=== PATIENT | male | born 1950 | race Caucasian/White ===

== ENCOUNTER 2020-03-14 10:27 | Inpatient (IN) | payer MEDICARE ==
[2020-03-14] MEDS ORDERED: Labetalol HCl 100 MG/20 ML VIAL SLOW IVP SCH (14:00)
[2020-03-14] MEDS ORDERED: Ondansetron PF 4 MG/2 ML Vial IVP PRN (14:53)
[2020-03-14] MEDS ORDERED: Acetaminophen 325 MG TAB PO PRN (14:53)
[2020-03-14] MEDS ORDERED: Ondansetron ODT 4 MG TAB PO PRN (14:53)
[2020-03-14] MEDS ORDERED: HumaLOG 300 UNITS/3 ML VIAL SC PRN (14:54)
[2020-03-14] MEDS ORDERED: Dextrose 5% in Water 1,000 ML IV PRN (14:54)
[2020-03-14] MEDS ORDERED: Dextrose 50% Abboject 50 ML SYRINGE SLOW IVP PRN (14:54)
[2020-03-14] MEDS ORDERED: niCARdipine 25 MG in Sodium Chloride 0.9% 250 ML 240 ML IVPB SCH (15:00)
[2020-03-14 16:07] LABS: Troponin I 0.581 ng/mL (< 0.028)
[2020-03-14 18:57] LABS: Critical Call Chem Troponin I RESULT DECREASING; Troponin I 0.477 ng/mL (< 0.028)
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
[2020-03-14] MEDS: Famotidine/PF 20 mg/2ml Vial SLOW IVP SCH (19:54)
[2020-03-14] MEDS: niCARdipine 25 MG in Sodium Chloride 0.9% 250 ML 240 ML IVPB SCH (20:57)
[2020-03-14] MEDS: Temazepam 15 MG CAP PO PRN (21:12)
[2020-03-14] MEDS: Nitroglycerin 2% Ointment 1 INCH/1 GM Packet TOP SCH (21:12)
[2020-03-15] MEDS: niCARdipine 25 MG in Sodium Chloride 0.9% 250 ML 240 ML IVPB SCH ×2 (01:06→05:21)
[2020-03-15 03:30] LABS: #Basophils 0.1 thou/uL (0.0-0.2); #Eosinphils 0.2 thou/uL (0.0-0.7); #Monocytes 1.2 thou/uL (0.11-0.59); %Basophils 0.5 % (0.0-1.0); %Eosinophils 1.5 % (0.0-10.0); %Lymphocytes 7.1 % (21.0-51.0); %Neutrophils 81.9 % (42.0-75.0); Hemoglobin 14.2 g/dL (14.0-18.0); Mean Corpuscular HGB CONC 32.3 g/dL (32.0-36.0); Mean Corpuscular Volume 89.9 fL (78.0-98.0); Mean Platelet Volume 7.6 fL (7.4-10.4); Platelet Count 198 thou/uL (130-400); Red Blood Cell (RBC) Count 4.91 mill/uL (4.70-6.10); White Blood Cell (WBC) Count 13.4 thou/uL (4.8-10.8)
[2020-03-15 03:49] LABS: Anion Gap 15 mmol/L (10-20); BUN (Urea Nitrogen) 33 mg/dL (8.4-25.7); Calc. Creatinine Clearance 80 mL/min (70-130); Calcium 9.4 mg/dL (7.8-10.44); Carbon Dioxide 30 mmol/L (23-31); Cardiac Risk 3.3 (Less than 4.5); Chloride 97 mmol/L (98-107); Cholesterol 97 mg/dl (< 200 Desired); Estimated GFR-MDRD 47; Glucose 121 mg/dL (83-110); HDL Cholesterol 29 mg/dL (>60 Neg Risk); LDL Cholesterol, Calculated 46 mg/dL; Potassium 4.1 mmol/L (3.5-5.1); Sodium 138 mmol/L (136-145); Triglycerides 110 mg/dL (Less than 150)
[2020-03-15] MEDS: Nitroglycerin 2% Ointment 1 INCH/1 GM Packet TOP SCH ×3 (05:16→21:05)
[2020-03-15] MEDS: Levothyroxine Sodium 125 MCG TAB PO SCH (05:16)
--- NOTE | 2020-03-15 08:14 | PDOC.CPN ---
- Subjective Date: 03/15/20 Time: 08:12 Interval history: Doing much better this am More lucid and BP better - Objective Allergies/Adverse Reactions: Allergies Allergy/AdvReac Type Severity Reaction Status Date / Time quetiapine fumarate Allergy Verified 03/14/20 13:29 [From Seroquel] trazodone Allergy Verified 03/14/20 13:29 Visit Medications: Current Medications Acetaminophen (Acetaminophen 325 Mg Tab) 650 mg PO Q4H PRN PRN Reason: Headache/Fever/Mild Pain (1-3) Atorvastatin Calcium (Atorvastatin Calcium 10 Mg Tab) 10 mg PO HS [facility] Carvedilol (Carvedilol 25 Mg Tab) 25 mg PO BID JOSAFAT Dextrose/Water (Dextrose 50% Abboject 50 Ml Syringe) 25 gm SLOW IVP PRN PRN PRN Reason: Hypoglycemia Famotidine (Famotidine/Pf 20 Mg/2ml Vial) 20 mg SLOW IVP Q12HR [facility] Last Admin: 03/14/20 19:54 Dose: 20 mg Documented by: Glucagon (Glucagon 1 Mg/Ml Vial) 1 mg IM PRN PRN PRN Reason: Hypoglycemia Dextrose/Water (D5w) 1,000 mls @ 0 mls/hr IV .Q0M PRN PRN Reason: Hypoglycemia Nicardipine HCl 25 mg/ Sodium (Chloride) 250 mls @ 0 mls/hr IVPB INF [facility]; Protocol Last Admin: 03/15/20 05:21 Dose: 250 mls Documented by: Indomethacin (Indomethacin 75 Mg Sr Capsule) 75 mg PO DAILY [facility] Insulin Human Lispro (Humalog 300 Units/3 Ml Vial) 0 units SC .MODERATE SLIDING SC PRN PRN Reason: Moderate Correctional Scale Insulin Human Lispro (Humalog 300 Units/3 Ml Vial) 0 units SC .BEDTIME SLIDING SC PRN PRN Reason: Bedtime Correctional Scale Levothyroxine Sodium (Levothyroxine Sodium 125 Mcg Tab) 125 mcg PO 0600 [facility] Last Admin: 03/15/20 05:16 Dose: 125 mcg Documented by: Nitroglycerin (Nitroglycerin 2% Ointment 1 Inch/1 Gm Packet) 0.5 inch TOP Q8HR [facility] Last Admin: 03/15/20 05:16 Dose: 0.5 inch Documented by: Ondansetron HCl (Ondansetron Odt 4 Mg Tab) 4 mg PO Q6H PRN PRN Reason: Nausea/Vomiting Ondansetron HCl (Ondansetron Pf 4 Mg/2 Ml Vial) 4 mg IVP Q6H PRN PRN Reason: Nausea/Vomiting Paroxetine HCl (Paroxetine 20 Mg Tab) 20 mg PO DAILY JOSAFAT Sodium Chloride (Flush - Normal Saline 10 Ml Syringe) 10 ml IVF Q12HR JOSAFAT Sodium Chloride (Flush - Normal Saline 10 Ml Syringe) 10 ml IVF PRN PRN PRN Reason: Saline Flush Temazepam (Temazepam 15 Mg Cap) 15 mg PO HS PRN PRN Reason: Insomnia Last Admin: 03/14/20 21:12 Dose: 15 mg Documented by: Vital Signs & Weight: Vital Signs Temp Pulse Ox 03/15/20 04:00 98.0 F 03/15/20 00:30 97 03/15/20 00:00 97.8 F Weight 272 lb 11.389 oz - Physical Exam General: no apparent distress HEENT: normocephaly Neck: supple neck Cardiac: no murmur, regular rate, regular rhythm Lungs: normal exam Neuro: grossly intact - Labs Result Diagrams: 03/15/20 03:02 03/15/20 03:02 Troponin/CKMB Troponin I 0.477 ng/mL (< 0.028) H* 03/14/20 18:13 - Telemetry Sinus rhythms and dysrhythmias: sinus rhythm - Assessment/Plan Assessment/Plan: 03/15 A/P Hypertensive urgency Elevated troponin CAD s/p CABG Renal insufficiency Add PO CCB On IV cardene Avoid metformin givne RI On ASA, coreg Add norvasc 5mg BID Add ARB if needed to supplement the CCB
--- NOTE | 2020-03-15 08:16 | CON ---
DATE OF CONSULTATION: 03/15/2020 REASON FOR CONSULTATION: The patient is in the ICU. HISTORY OF PRESENT ILLNESS: The patient is a 70-year-old male who transferred to this facility from [place] and told he was brought to the ICU last night because he was quite hypertensive, turns out his IV were infiltrated. Once IV was reestablished, it was fairly easy to get his blood pressure down. The patient has now been weaned off nicardipine drip. He is alert and oriented at this time and has no specific complaints other than his arms are tied down. PAST MEDICAL HISTORY: 1. Diabetes mellitus. 2. Hypertension. 3. Hypothyroidism. 4. Coronary artery disease. 5. Myocardial infarction. 6. Obesity. PAST SURGICAL HISTORY: Coronary artery bypass grafting surgery in 2013. He has a pacemaker, left arm surgery, multiple eye surgeries, and right knee arthroplasty. ALLERGIES: NONE. SOCIAL HISTORY: He is . He ambulates with a walker. He formally smoked two packs a day for about 40 years. He chews tobacco. FAMILY MEDICAL HISTORY: Remarkable for coronary artery disease. MEDICATIONS: Prior to admission: 1. Ambien CR 12.5 mg nightly. 2. Zaroxolyn 5 mg daily. 3. Tramadol 50 mg as needed. 4. Restoril 15 mg nightly. 5. Levothyroxine 125 mcg daily. 6. Simvastatin 20 mg daily. 7. Paxil 20 mg daily. 8. Potassium chloride 20 mEq in the morning and 10 mEq in the evening. 9. Indomethacin 75 mg daily. 10. Metformin 500 mg daily. 11. Aspirin 81 mg daily. 12. Torsemide 50 mg twice daily. 13. Carvedilol 25 mg twice daily. 14. Albuterol inhaler as needed. REVIEW OF SYSTEMS: Twelve-point review of systems is otherwise negative. PHYSICAL EXAMINATION: VITAL SIGNS: Temperature 98.0, pulse 61, blood pressure 131/75, and O2 saturation 100%. GENERAL: He is awake, in no distress. HEENT: Unremarkable. NECK: No adenopathy or JVD. CHEST: Has a pacemaker, palpable left upper quadrant chest. LUNGS: Clear to auscultation. CARDIAC: S1 and S2. Paced without murmur. ABDOMEN: Soft, obese, nontender, and nondistended. EXTREMITIES: No clubbing or cyanosis. He has multiple abrasions over his left pretibial region. LABORATORY DATA: White blood cell count 13.4, hematocrit 44.1, and platelet count 198. Sodium 138, potassium 4.1, chloride 97, CO2 of 30, BUN 33, creatinine 1.5, and glucose 121. ASSESSMENT: 1. Encephalopathy-seems to be improved after control of the patient's blood pressure. 2. Multiple other medical problems as listed above. RECOMMENDATIONS: The patient's blood pressure is now stable and I would advise moving him out to the floor for further workup of the remainder of his medical problems. He does not require intensive care at this time. Available as needed. Job ID: [id number]
[2020-03-15] MEDS: Carvedilol 25 MG TAB PO SCH ×2 (08:22→21:10)
[2020-03-15] MEDS: PARoxetine 20 MG TAB PO SCH (08:22)
[2020-03-15] MEDS: Famotidine/PF 20 mg/2ml Vial SLOW IVP SCH ×2 (08:22→21:05)
--- NOTE | 2020-03-15 08:28 | CON ---
DATE OF CONSULTATION: 03/14/2020 REASON FOR CONSULTATION: Elevated troponin. PRIMARY CABLE RESPOOLER: Dr. Zhen Hollins. HISTORY OF PRESENT ILLNESS: Mr. Gonsalves is a 70-year-old gentleman from [place], [place]. He recently was seen and evaluated in [place], [place] for dizziness and lightheadedness. Blood pressure was markedly elevated. His troponin was also in the indeterminate range. The history from Mr. Gonsalves is difficult. He does have mild confusion. He does know where he is. He denies chest pain, pressure, or other associated symptoms. Blood pressure is markedly elevated in the 220/110 range. He has been placed on Cardene for blood pressure management. PAST MEDICAL HISTORY: CAD, status post bypass surgery; hypertension; obesity; hypothyroidism; previous [place]; diabetes mellitus; left arm surgery; eye surgery; and knee surgery. ALLERGIES: NONE. SOCIAL HISTORY: He is currently . Previous tobacco abuse. FAMILY HISTORY: Positive for CAD. HOME MEDICATIONS: Include: 1. Potassium. 2. Paxil. 3. Simvastatin. 4. Levothyroxine. 5. Temazepam. 6. Tramadol. 7. Zaroxolyn. 8. Ambien. 9. Metformin. 10. Aspirin. 11. Torsemide. 12. Carvedilol. 13. Albuterol. REVIEW OF SYSTEMS: Difficult to obtain due to confusion. PHYSICAL EXAMINATION: GENERAL: Patient is a pleasant 70-year-old gentleman who is in no acute distress. The patient appears their stated age. He is confused. VITAL SIGNS: Blood pressure 135/75, pulse 61, temperature afebrile. NEUROLOGIC: The patient is alert and oriented x3 with no focal neurologic deficits. HEENT: Sclerae without icterus. Mouth has moist mucous membranes with normal pallor. NECK: No JVD. Carotid upstroke brisk. No bruits bilaterally. LUNGS: Clear to auscultation with unlabored respirations. BACK: No scoliosis or kyphosis. CARDIAC: Regular rate and rhythm with normal S1 and S2. No S3 or S4 noted. No significant rubs, murmurs, thrills, or gallops noted throughout the precordium. PMI is not displaced. There is no parasternal heave. ABDOMEN: Soft, nontender, nondistended. No peritoneal signs present. No hepatosplenomegaly. No abnormal striae. EXTREMITIES: 2+ femoral and 2+ dorsalis pedis pulses. No cyanosis, clubbing, or edema. SKIN: No gross abnormalities. PERTINENT LABORATORY DATA: Hemoglobin 14.2, platelet count 198. Creatinine 1.47 with a GFR of 47. Peak troponin 0.581. EKG shows normal sinus rhythm with ST-T wave changes suggesting LV strain. No acute changes. IMPRESSION: 1. Hypertensive urgency. 2. Coronary artery disease. 3. Status post bypass surgery. 4. Elevated troponin. RECOMMENDATIONS: 1. Agree with institution of Cardene. May also consider IV nitroglycerin for better blood pressure management. Once blood pressure is managed via IV route, would then supplement with p.o. 2. Elevated troponin secondary to demand ischemia from hypertensive urgency. The patient has no current symptoms suggesting unstable angina. 3. Avoid metformin due to risk of lactic acidosis given renal insufficiency. Job ID: [id number]
[2020-03-15] MEDS ORDERED: FLU VACC QS2020-21(65YR UP)/PF 240 MCG/0.7 ML SYRINGE IM ONE (09:00)
[2020-03-15] MEDS ORDERED: ZOLPIDEM TARTRATE 12.5 MG PO PRN (09:23)
[2020-03-15] MEDS ORDERED: hydrALAZINE 25 MG TAB PO PRN (09:29)
--- NOTE | 2020-03-15 09:32 | PDOC.HOSPP ---
- Subjective Encounter Date: 03/15/20 Encounter Time: 09:30 Subjective: Mr. Gonsalves was seen today in follow-up of hypertensive crisis. He is more alert today, and a bit less confused. He denies headache or chest pain. - Objective Vital Signs & Weight: Vital Signs (12 hours) Temp Pulse Ox 03/15/20 07:00 97.6 F 03/15/20 04:00 98.0 F 03/15/20 00:30 97 03/15/20 00:00 97.8 F Weight Weight 272 lb 11.389 oz Most Recent Monitor Data Heart Rate from ECG 62 NIBP 162/88 NIBP BP-Mean 112 Respiration from ECG 12 SpO2 100 I&O: 03/14/20 03/15/20 03/16/20 06:59 06:59 06:59 Intake Total 580 160 Output Total 1750 296 Balance -1170 -136 Result Diagrams: 03/15/20 03:02 03/15/20 03:02 Additional Labs: Accuchecks 03/15/20 03/14/20 03/14/20 08:40 21:27 18:45 POC Glucose 116 H 115 H 123 H Hospitalist ROS - Medication Medications: Active Medications Generic Name Dose Route Start Last Admin Trade Name Freq PRN Reason Stop Dose Admin Carvedilol 25 mg 03/15/20 09:00 03/15/20 08:22 Carvedilol 25 Mg Tab PO 25 mg BID JOSAFAT Administration Famotidine 20 mg 03/14/20 21:00 03/15/20 08:22 Famotidine/Pf 20 Mg/2ml Vial SLOW IVP 20 mg Q12HR JOSAFAT Administration Nicardipine HCl 25 mg/ Sodium 250 mls @ 0 mls/hr 03/14/20 16:57 03/15/20 05:21 Chloride IVPB 250 mls INF JOSAFAT Administration Protocol Titrate Levothyroxine Sodium 125 mcg 03/15/20 06:00 03/15/20 05:16 Levothyroxine Sodium 125 Mcg Tab PO 125 mcg 0600 JOSAFAT Administration Nitroglycerin 0.5 inch 03/14/20 22:00 03/15/20 05:16 Nitroglycerin 2% Ointment 1 Inch/1 Gm Packet TOP 0.5 inch Q8HR JOSAFAT Administration Paroxetine HCl 20 mg 03/15/20 09:00 03/15/20 08:22 Paroxetine 20 Mg Tab PO 20 mg DAILY JOSAFAT Administration Sodium Chloride 10 ml 03/15/20 09:00 03/15/20 09:09 Flush - Normal Saline 10 Ml Syringe IVF 10 ml Q12HR JOSAFAT Administration Temazepam 15 mg 03/14/20 21:02 03/14/20 21:12 Temazepam 15 Mg Cap PO 15 mg HS PRN Administration Insomnia - Exam Eye: PERRL, anicteric sclera Heart: RRR, no murmur, no gallops, no rubs, normal peripheral pulses Respiratory: CTAB, no wheezes, no rales, no ronchi, normal chest expansion Gastrointestinal: soft, non-tender, non-distended, normal bowel sounds, no palpable masses, no hepatomegaly Extremities: no cyanosis Hosp A/P (1) Hypertensive crisis Code(s): I16.9 - HYPERTENSIVE CRISIS, UNSPECIFIED Status: Acute (2) Hypertensive encephalopathy Code(s): I67.4 - HYPERTENSIVE ENCEPHALOPATHY Status: Acute (3) CAD (coronary artery disease) Code(s): I25.10 - ATHSCL HEART DISEASE OF SAULT [place] CORONARY ARTERY W/O ANG PCTRS Status: Chronic (4) Diabetes mellitus type 2 in obese Code(s): E11.69 - TYPE 2 DIABETES MELLITUS WITH OTHER SPECIFIED COMPLICATION; E66.9 - OBESITY, UNSPECIFIED Status: Acute (5) Morbid obesity with BMI of 40.0-44.9, adult Code(s): E66.01 - MORBID (SEVERE) OBESITY DUE TO EXCESS CALORIES; Z68.41 - BODY MASS INDEX (BMI) 40.0-44.9, ADULT Status: Chronic (6) Fall Code(s): W19.XXXA - UNSPECIFIED FALL, INITIAL ENCOUNTER Status: Acute - Plan * Hypertensive Crisis- improved - he is now off the Cardene drip. Will add Amlodipine * DM- blood glucose is stable- will re-start Metformin and continue SSI * Chronic heart failure- will check an Echo * Elevated Troponins- Likely due to NSTEMI type 2, demand from elevated blood pressure * Lower extremity weakness- this is not noted on exam while in the bed- his strength is ok- but says he has not been able to walk since tuesday. Tried to get MRI, but he has a pace-maker defibrillator. Will have to wait until Tuesday, when a risk control field representative from [employer] can be present to ensure that the pace-maker defibrillator is compatible.
[2020-03-15] MEDS ORDERED: Amlodipine 5 MG TAB PO SCH ×2 (09:37→09:45)
[2020-03-15] MEDS: Indomethacin 75 mg SR Capsule PO SCH (10:41)
[2020-03-15 12:10] LABS: SARS-CoV-2 MS2 Positive; SARS-CoV-2 N Gene Negative; SARS-CoV-2 S Gene Negative; SARS-CoV-2 by NAA Not Detected (NotDetected); SARS-CoV-2 orf1ab Negative
[2020-03-15] MEDS: HumaLOG 300 UNITS/3 ML VIAL SC PRN (17:54)
[2020-03-15] MEDS ORDERED: POTASSIUM CHLORIDE 10 MEQ PO SCH (21:00)
[2020-03-15] MEDS: Temazepam 15 MG CAP PO PRN (21:05)
[2020-03-15] MEDS: Potassium Chloride 10 MEQ TAB PO SCH (21:10)
[2020-03-15] MEDS: Atorvastatin Calcium 10 MG TAB PO SCH (21:10)
[2020-03-15] MEDS: Zolpidem Tartrate 5 MG TAB PO PRN (21:10)
[2020-03-15] MEDS: Torsemide 100 MG TAB PO SCH (21:15)
[2020-03-16 04:28] LABS: #Basophils 0.1 thou/uL (0.0-0.2); #Eosinphils 0.3 thou/uL (0.0-0.7); #Lymphocytes 0.9 thou/uL (1.20-3.40); #Monocytes 0.6 thou/uL (0.11-0.59); #Neutrophils 8.3 thou/uL (1.40-6.50); %Basophils 0.5 % (0.0-1.0); %Eosinophils 2.6 % (0.0-10.0); %Lymphocytes 8.5 % (21.0-51.0); %Monocytes 6.3 % (0.0-10.0); %Neutrophils 82.1 % (42.0-75.0); Hemoglobin 14.1 g/dL (14.0-18.0); Mean Corpuscular HGB CONC 31.9 g/dL (32.0-36.0); Mean Corpuscular Hemoglobin 28.7 pg (27.0-31.0); Mean Platelet Volume 7.6 fL (7.4-10.4); Platelet Count 214 thou/uL (130-400); RBC Distribution Width 14.9 % (11.5-14.5); Red Blood Cell (RBC) Count 4.93 mill/uL (4.70-6.10); White Blood Cell (WBC) Count 10.1 thou/uL (4.8-10.8)
[2020-03-16 04:50] LABS: Anion Gap 13 mmol/L (10-20); BUN (Urea Nitrogen) 35 mg/dL (8.4-25.7); Calc. Creatinine Clearance 84 mL/min (70-130); Carbon Dioxide 31 mmol/L (23-31); Chloride 96 mmol/L (98-107); Estimated GFR-MDRD 50; Glucose 106 mg/dL (83-110); Sodium 136 mmol/L (136-145)
[2020-03-16] MEDS: Nitroglycerin 2% Ointment 1 INCH/1 GM Packet TOP SCH (06:20)
[2020-03-16] MEDS: Levothyroxine Sodium 125 MCG TAB PO SCH (06:20)
[2020-03-16] MEDS ORDERED: Amlodipine 5 MG TAB PO SCH ×3 (09:00→21:00)
[2020-03-16] MEDS: Metolazone 5 MG TAB PO SCH (09:06)
[2020-03-16] MEDS: Indomethacin 75 mg SR Capsule PO SCH (09:06)
[2020-03-16] MEDS: Famotidine/PF 20 mg/2ml Vial SLOW IVP SCH ×2 (09:06→20:48)
[2020-03-16] MEDS: PARoxetine 20 MG TAB PO SCH (09:06)
[2020-03-16] MEDS: Carvedilol 25 MG TAB PO SCH ×2 (09:06→20:48)
[2020-03-16] MEDS: Aspirin 81 mg Enteric Coated Tablet PO SCH (09:06)
[2020-03-16] MEDS: Potassium Chloride 20 MEQ TAB PO SCH (09:07)
[2020-03-16] MEDS: Torsemide 100 MG TAB PO SCH ×2 (09:07→20:49)
[2020-03-16] MEDS: HumaLOG 300 UNITS/3 ML VIAL SC PRN (11:54)
--- NOTE | 2020-03-16 12:59 | PDOC.CPN ---
- Subjective Date: 03/16/20 Time: 12:15 Interval history: No complaints this morning. Hungry. - Review of Systems General: denies: fever/chills, weight/appetite/sleep changes, night sweats, fatigue Respiratory: denies: cough, congestion, shortness of breath, exercise intolerance Cardiovascular: denies: chest pain, palpitation, edema, paroxysmal nocturnal dyspnea, orthopnea Gastrointestinal: denies: nausea, vomiting, diarrhea, constipation, abd pain, GI bleeding Neurological: reports: weakness (weakness to legs) - Objective Allergies/Adverse Reactions: Allergies Allergy/AdvReac Type Severity Reaction Status Date / Time quetiapine fumarate Allergy Verified 03/14/20 13:29 [From Seroquel] trazodone Allergy Verified 03/14/20 13:29 Visit Medications: Current Medications Acetaminophen (Acetaminophen 325 Mg Tab) 650 mg PO Q4H PRN PRN Reason: Headache/Fever/Mild Pain (1-3) Amlodipine Besylate (Amlodipine 5 Mg Tab) 5 mg PO BID [facility] Aspirin (Aspirin 81 Mg Enteric Coated Tablet) 81 mg PO DAILY [facility] Last Admin: 03/16/20 09:06 Dose: 81 mg Documented by: Atorvastatin Calcium (Atorvastatin Calcium 10 Mg Tab) 10 mg PO HS [facility] Last Admin: 03/15/20 21:10 Dose: 10 mg Documented by: Carvedilol (Carvedilol 25 Mg Tab) 25 mg PO BID [facility] Last Admin: 03/16/20 09:06 Dose: 25 mg Documented by: Dextrose/Water (Dextrose 50% Abboject 50 Ml Syringe) 25 gm SLOW IVP PRN PRN PRN Reason: Hypoglycemia Famotidine (Famotidine/Pf 20 Mg/2ml Vial) 20 mg SLOW IVP Q12HR [facility] Last Admin: 03/16/20 09:06 Dose: 20 mg Documented by: Glucagon (Glucagon 1 Mg/Ml Vial) 1 mg IM PRN PRN PRN Reason: Hypoglycemia Hydralazine HCl (Hydralazine 25 Mg Tab) 25 mg PO TID PRN PRN Reason: SBP Greater Than 170 Dextrose/Water (D5w) 1,000 mls @ 0 mls/hr IV .Q0M PRN PRN Reason: Hypoglycemia Nicardipine HCl 25 mg/ Sodium (Chloride) 250 mls @ 0 mls/hr IVPB INF [facility]; Protocol Last Admin: 03/15/20 05:21 Dose: 250 mls Documented by: Indomethacin (Indomethacin 75 Mg Sr Capsule) 75 mg PO DAILY [facility] Last Admin: 03/16/20 09:06 Dose: 75 mg Documented by: Insulin Human Lispro (Humalog 300 Units/3 Ml Vial) 0 units SC .MODERATE SLIDING SC PRN PRN Reason: Moderate Correctional Scale Last Admin: 03/16/20 11:54 Dose: 2 unit Documented by: Insulin Human Lispro (Humalog 300 Units/3 Ml Vial) 0 units SC .BEDTIME SLIDING SC PRN PRN Reason: Bedtime Correctional Scale Isosorbide Mononitrate (Isosorbide Mononitrate Er 30 Mg Tab) 30 mg PO DAILY [facility] Levothyroxine Sodium (Levothyroxine Sodium 125 Mcg Tab) 125 mcg PO 0600 [facility] Last Admin: 03/16/20 06:20 Dose: Not Given Documented by: Metolazone (Metolazone 5 Mg Tab) 5 mg PO DAILY [facility] Last Admin: 03/16/20 09:06 Dose: 5 mg Documented by: Ondansetron HCl (Ondansetron Odt 4 Mg Tab) 4 mg PO Q6H PRN PRN Reason: Nausea/Vomiting Ondansetron HCl (Ondansetron Pf 4 Mg/2 Ml Vial) 4 mg IVP Q6H PRN PRN Reason: Nausea/Vomiting Paroxetine HCl (Paroxetine 20 Mg Tab) 20 mg PO DAILY [facility] Last Admin: 03/16/20 09:06 Dose: 20 mg Documented by: Potassium Chloride (Potassium Chloride 20 Meq Tab) 20 meq PO DAILY [facility] Last Admin: 03/16/20 09:07 Dose: 20 meq Documented by: Potassium Chloride (Potassium Chloride 10 Meq Tab) 10 meq PO HS [facility] Last Admin: 03/15/20 21:10 Dose: 10 meq Documented by: Sodium Chloride (Flush - Normal Saline 10 Ml Syringe) 10 ml IVF Q12HR [facility] Last Admin: 03/16/20 09:07 Dose: 10 ml Documented by: Sodium Chloride (Flush - Normal Saline 10 Ml Syringe) 10 ml IVF PRN PRN PRN Reason: Saline Flush Temazepam (Temazepam 15 Mg Cap) 15 mg PO HS PRN PRN Reason: Insomnia Last Admin: 03/15/20 21:05 Dose: 15 mg Documented by: Torsemide (Torsemide 100 Mg Tab) 50 mg PO BID [facility] Last Admin: 03/16/20 09:07 Dose: 50 mg Documented by: Zolpidem Tartrate (Zolpidem Tartrate 5 Mg Tab) 10 mg PO HSPRN PRN PRN Reason: SLEEP Last Admin: 03/15/20 21:10 Dose: 10 mg Documented by: Vital Signs & Weight: Vital Signs Temp Pulse Resp BP Pulse Ox 03/16/20 11:31 97.7 F 60 18 172/84 H 95 03/16/20 07:43 98.2 F 61 18 169/83 H 95 03/16/20 04:00 96.2 F L 62 20 143/88 H 96 Weight 277 lb 12.519 oz - Physical Exam General: appears well, no apparent distress HEENT: mucus membranes moist Neck: supple neck Cardiac: regular rate and rhythm Lungs: clear to auscultation Abdomen: soft, non-tender Extremities: no edema, other: (decreased to absent pedal pulses. Healing ulcerations bilaterally.) Skin: ulceration Musculoskeletal: no pain - Labs Result Diagrams: 03/16/20 03:54 03/16/20 03:54 Troponin/CKMB Troponin I 0.477 ng/mL (< 0.028) H* 03/14/20 18:13 - Assessment/Plan Assessment/Plan: 1. HTN Urgency 2. NSTEMI 3. PAD 4. DM 5. Leg weakness 6. Chronic systolic CHF Continue adjusting BP meds. Patient with no stress test or angio since 2013. Will discuss keeping NPO with RG. Needs peripheral angio at some point in the future. Patient cannot have MRI with current ICD. May need neuro evaluation. Good output regarding CHF. Dr. Hollins back tomorrow.
[2020-03-16] MEDS ORDERED: PROVENTIL INHALER 6.7 G (200 INHALATIONS) INH PRN (18:16)
--- NOTE | 2020-03-16 18:18 | PDOC.HOSPP ---
- Subjective Encounter Date: 03/16/20 Encounter Time: 10:40 Subjective: Pt has no acute issues at this time. - Objective Vital Signs & Weight: Vital Signs (12 hours) Temp Pulse Resp BP Pulse Ox 03/16/20 15:20 98.2 F 60 16 173/74 H 97 03/16/20 11:31 97.7 F 60 18 172/84 H 95 03/16/20 07:43 98.2 F 61 18 169/83 H 95 Weight Weight 277 lb 12.519 oz Most Recent Monitor Data Heart Rate from ECG 65 NIBP 162/95 NIBP BP-Mean 117 Respiration from ECG 19 SpO2 97 I&O: 03/15/20 03/16/20 03/17/20 06:59 06:59 06:59 Intake Total 580 310 Output Total 1750 1238 Balance -1170 928 Result Diagrams: 03/16/20 03:54 03/16/20 03:54 Additional Labs: Accuchecks 03/16/20 03/16/20 03/15/20 17:22 11:19 20:17 POC Glucose 139 H 186 H 168 H Hospitalist ROS - Review of Systems Constitutional: denies: fever, chills, sweats, weakness, malaise, other Eyes: denies: pain, vision change, conjunctivae inflammation, eyelid inflammation, redness, other ENT: denies: ear pain, ear discharge, nose pain, nose discharge, nose congestion, mouth pain, mouth swelling, throat pain, throat swelling, other Respiratory: denies: cough, dry, shortness of breath, hemoptysis, SOB with excertion, pleuritic pain, sputum, wheezing, other Cardiovascular: denies: chest pain, palpitations, orthopnea, paroxysmal noc. dyspnea, edema, light headedness, other Gastrointestinal: denies: nausea, vomiting, abdominal pain, diarrhea, constipation, melena, hematochezia, other Genitourinary: denies: dysuria, frequency, incontinence, hematuria, retention, other Musculoskeletal: denies: neck pain, shoulder pain, arm pain, back pain, hand pain, leg pain, foot pain, other Skin: denies: rash, lesions, maria esther, bruising, other Neurological: denies: weakness, numbness, incoordination, change in speech, confusion, seizures, other - Medication Medications: Active Medications Generic Name Dose Route Start Last Admin Trade Name Kemq PRN Reason Stop Dose Admin Aspirin 81 mg 03/16/20 09:00 03/16/20 09:06 Aspirin 81 Mg Enteric Coated Tablet PO 81 mg DAILY JOSAFAT Administration Atorvastatin Calcium 10 mg 03/15/20 21:00 03/15/20 21:10 Atorvastatin Calcium 10 Mg Tab PO 10 mg HS JOSAFAT Administration Carvedilol 25 mg 03/15/20 09:00 03/16/20 09:06 Carvedilol 25 Mg Tab PO 25 mg BID JOSAFAT Administration Famotidine 20 mg 03/14/20 21:00 03/16/20 09:06 Famotidine/Pf 20 Mg/2ml Vial SLOW IVP 20 mg Q12HR JOSAFAT Administration Hydralazine HCl 25 mg 03/15/20 09:29 03/16/20 15:26 Hydralazine 25 Mg Tab PO 25 mg TID PRN Administration SBP Greater Than 170 Nicardipine HCl 25 mg/ Sodium 250 mls @ 0 mls/hr 03/14/20 16:57 03/15/20 05:21 Chloride IVPB 250 mls INF JOSAFAT Administration Protocol Titrate Indomethacin 75 mg 03/15/20 09:00 03/16/20 09:06 Indomethacin 75 Mg Sr Capsule PO 75 mg DAILY JOSAFAT Administration Insulin Human Lispro 0 units 03/14/20 14:54 03/16/20 11:54 Humalog 300 Units/3 Ml Vial SC 2 unit .MODERATE SLIDING SC PRN Administration Moderate Correctional Scale Levothyroxine Sodium 125 mcg 03/15/20 06:00 03/16/20 06:20 Levothyroxine Sodium 125 Mcg Tab PO Not Given 06 [facility] Metolazone 5 mg 03/16/20 09:00 03/16/20 09:06 Metolazone 5 Mg Tab PO 5 mg DAILY JOSAFAT Administration Paroxetine HCl 20 mg 03/15/20 09:00 03/16/20 09:06 Paroxetine 20 Mg Tab PO 20 mg DAILY JOSAFAT Administration Potassium Chloride 20 meq 03/16/20 09:00 03/16/20 09:07 Potassium Chloride 20 Meq Tab PO 20 meq DAILY JOSAFAT Administration Potassium Chloride 10 meq 03/15/20 21:00 03/15/20 21:10 Potassium Chloride 10 Meq Tab PO 10 meq HS JOSAFAT Administration Sodium Chloride 10 ml 03/15/20 09:00 03/16/20 09:07 Flush - Normal Saline 10 Ml Syringe IVF 10 ml Q12HR JOSAFAT Administration Temazepam 15 mg 03/14/20 21:02 03/15/20 21:05 Temazepam 15 Mg Cap PO 15 mg HS PRN Administration Insomnia Torsemide 50 mg 03/15/20 21:00 03/16/20 09:07 Torsemide 100 Mg Tab PO 50 mg BID JOSAFAT Administration Zolpidem Tartrate 10 mg 03/15/20 21:00 03/15/20 21:10 Zolpidem Tartrate 5 Mg Tab PO 10 mg HSPRN PRN Administration SLEEP - Exam General Appearance: awake alert Eye: PERRL, anicteric sclera ENT: normocephalic atraumatic, no oropharyngeal lesions Neck: supple, symmetric, no JVD Heart: no murmur, no gallops, no rubs Respiratory: CTAB, no rales, no ronchi Gastrointestinal: soft, non-tender, non-distended Extremities: no cyanosis, no clubbing, no edema Neurological: cranial nerve grossly intact, no focal deficits Musculoskeletal: normal tone, normal strength Psychiatric: normal affect, normal behavior, A&O x 3 Hosp A/P (1) ANTONIO (acute kidney injury) Code(s): N17.9 - ACUTE KIDNEY FAILURE, UNSPECIFIED Status: Acute Plan: Improving. Metformin still in hold. Will cont to monitor Cr. (2) Diabetes mellitus type 2 in obese Code(s): E11.69 - TYPE 2 DIABETES MELLITUS WITH OTHER SPECIFIED COMPLICATION; E66.9 - OBESITY, UNSPECIFIED Status: Acute Plan: Controlled. Metformin on hold due to ANTONIO. Monitor BG, cover with SSI. (3) Hypertensive crisis Code(s): I16.9 - HYPERTENSIVE CRISIS, UNSPECIFIED Status: Acute Plan: BP is still high. Will d/c Amlodipine, start Nifedipine 30 mg BID. Monitor BP. Cardiology is on board. Unable to get MRI now due to PM incompatibility. (4) CAD (coronary artery disease) Code(s): I25.10 - ATHSCL HEART DISEASE OF [place] CORONARY ARTERY W/O ANG PCTRS Status: Chronic Plan: Stable. Cont med mgt. (5) S/P CABG (coronary artery bypass graft) Code(s): Z95.1 - PRESENCE OF AORTOCORONARY BYPASS GRAFT Status: Acute Plan: Cont med mgt. (6) Elevated troponin Code(s): R77.8 - OTHER SPECIFIED ABNORMALITIES OF PLASMA PROTEINS Status: Acute Plan: Likely due to Type NE. Cardiology is on board. F/u with cardiac recs. - Plan PPx: SCDs. CODE: Full. Dispo: Cont current mgt.
[2020-03-16] MEDS: Atorvastatin Calcium 10 MG TAB PO SCH (20:47)
[2020-03-16] MEDS: Potassium Chloride 10 MEQ TAB PO SCH (20:48)
[2020-03-16] MEDS: NIFEdipine XL 30 MG TAB PO SCH (20:48)
[2020-03-17] MEDS: Temazepam 15 MG CAP PO PRN (03:17)
[2020-03-17 04:18] LABS: #Eosinphils 0.2 thou/uL (0.0-0.7); #Lymphocytes 0.8 thou/uL (1.20-3.40); #Monocytes 0.6 thou/uL (0.11-0.59); #Neutrophils 8.2 thou/uL (1.40-6.50); %Basophils 0.1 % (0.0-1.0); %Eosinophils 2.1 % (0.0-10.0); %Lymphocytes 8.4 % (21.0-51.0); %Monocytes 6.3 % (0.0-10.0); %Neutrophils 83.1 % (42.0-75.0); Mean Corpuscular HGB CONC 31.6 g/dL (32.0-36.0); Mean Corpuscular Hemoglobin 28.4 pg (27.0-31.0); Mean Corpuscular Volume 89.9 fL (78.0-98.0); Mean Platelet Volume 7.7 fL (7.4-10.4); Platelet Count 216 thou/uL (130-400); RBC Distribution Width 14.7 % (11.5-14.5); Red Blood Cell (RBC) Count 4.94 mill/uL (4.70-6.10); White Blood Cell (WBC) Count 9.8 thou/uL (4.8-10.8)
[2020-03-17 04:42] LABS: Anion Gap 14 mmol/L (10-20); BUN (Urea Nitrogen) 46 mg/dL (8.4-25.7); Calc. Creatinine Clearance 67 mL/min (70-130); Calcium 8.7 mg/dL (7.8-10.44); Carbon Dioxide 32 mmol/L (23-31); Chloride 95 mmol/L (98-107); Estimated GFR-MDRD 37; Glucose 222 mg/dL (83-110); Potassium 3.3 mmol/L (3.5-5.1); Sodium 138 mmol/L (136-145)
[2020-03-17] MEDS: Levothyroxine Sodium 125 MCG TAB PO SCH (06:45)
[2020-03-17] MEDS: HumaLOG 300 UNITS/3 ML VIAL SC PRN ×2 (06:45→17:19)
[2020-03-17] MEDS: Aspirin 81 mg Enteric Coated Tablet PO SCH (09:33)
[2020-03-17] MEDS: Carvedilol 25 MG TAB PO SCH ×2 (09:33→21:42)
[2020-03-17] MEDS: Famotidine/PF 20 mg/2ml Vial SLOW IVP SCH ×2 (09:33→21:43)
[2020-03-17] MEDS: Metolazone 5 MG TAB PO SCH (09:33)
[2020-03-17] MEDS: NIFEdipine XL 30 MG TAB PO SCH ×2 (09:33→21:42)
[2020-03-17] MEDS: PARoxetine 20 MG TAB PO SCH (09:34)
[2020-03-17] MEDS: Potassium Chloride 20 MEQ TAB PO SCH (09:34)
[2020-03-17] MEDS: Torsemide 100 MG TAB PO SCH ×2 (09:36→21:52)
[2020-03-17] MEDS: Indomethacin 75 mg SR Capsule PO SCH (09:38)
--- NOTE | 2020-03-17 12:15 | PDOC.HOSPP ---
- Subjective Encounter Date: 03/17/20 Encounter Time: 12:08 Subjective: post fall. difficulty standing. recent memory deficit - Objective Vital Signs & Weight: Vital Signs (12 hours) Temp Pulse Resp BP Pulse Ox 03/17/20 11:52 97.8 F 61 16 137/71 96 03/17/20 07:34 98.3 F 61 14 160/79 H 97 03/17/20 06:00 98.4 F 62 18 129/62 92 L Weight Weight 279 lb 8.738 oz Most Recent Monitor Data Heart Rate from ECG 65 NIBP 162/95 NIBP BP-Mean 117 Respiration from ECG 19 SpO2 97 I&O: 03/16/20 03/17/20 03/18/20 06:59 06:59 06:59 Intake Total 310 2410 Output Total 1234 3150 Balance -698 -652 Result Diagrams: 03/17/20 03:56 03/17/20 03:56 Additional Labs: Accuchecks 03/17/20 03/17/20 03/16/20 12:01 06:12 20:33 POC Glucose 146 H 169 H 162 H 03/16/20 17:22 POC Glucose 139 H Hospitalist ROS - Medication Medications: Active Medications Generic Name Dose Route Start Last Admin Trade Name Freq PRN Reason Stop Dose Admin Acetaminophen 650 mg 03/14/20 14:53 03/17/20 03:17 Acetaminophen 325 Mg Tab PO 650 mg Q4H PRN Administration Headache/Fever/Mild Pain (1-3) Aspirin 81 mg 03/16/20 09:00 03/17/20 09:33 Aspirin 81 Mg Enteric Coated Tablet PO 81 mg DAILY JOSAFAT Administration Atorvastatin Calcium 10 mg 03/15/20 21:00 03/16/20 20:47 Atorvastatin Calcium 10 Mg Tab PO 10 mg HS JOSAFAT Administration Carvedilol 25 mg 03/15/20 09:00 03/17/20 09:33 Carvedilol 25 Mg Tab PO 25 mg BID JOSAFAT Administration Famotidine 20 mg 03/14/20 21:00 03/17/20 09:33 Famotidine/Pf 20 Mg/2ml Vial SLOW IVP 20 mg Q12HR JOSAFAT Administration Hydralazine HCl 25 mg 03/15/20 09:29 03/16/20 15:26 Hydralazine 25 Mg Tab PO 25 mg TID PRN Administration SBP Greater Than 170 Indomethacin 75 mg 03/15/20 09:00 03/17/20 09:38 Indomethacin 75 Mg Sr Capsule PO 75 mg DAILY JOSAFAT Administration Insulin Human Lispro 0 units 03/14/20 14:54 03/17/20 06:45 Humalog 300 Units/3 Ml Vial SC 2 unit .MODERATE SLIDING SC PRN Administration Moderate Correctional Scale Isosorbide Mononitrate 30 mg 03/17/20 09:00 03/17/20 09:33 Isosorbide Mononitrate Er 30 Mg Tab PO 30 mg DAILY JOSAFAT Administration Levothyroxine Sodium 125 mcg 03/15/20 06:00 03/17/20 06:45 Levothyroxine Sodium 125 Mcg Tab PO 125 mcg 0600 JOSAFAT Administration Metolazone 5 mg 03/16/20 09:00 03/17/20 09:33 Metolazone 5 Mg Tab PO 5 mg DAILY JOSAFAT Administration Nifedipine 30 mg 03/16/20 21:00 03/17/20 09:33 Nifedipine Xl 30 Mg Tab PO 30 mg BID JOSAFAT Administration Paroxetine HCl 20 mg 03/15/20 09:00 03/17/20 09:34 Paroxetine 20 Mg Tab PO 20 mg DAILY JOSAFAT Administration Potassium Chloride 20 meq 03/16/20 09:00 03/17/20 09:34 Potassium Chloride 20 Meq Tab PO 20 meq DAILY JOSAFAT Administration Potassium Chloride 10 meq 03/15/20 21:00 03/16/20 20:48 Potassium Chloride 10 Meq Tab PO 10 meq HS JOSAFAT Administration Sodium Chloride 10 ml 03/15/20 09:00 03/17/20 09:34 Flush - Normal Saline 10 Ml Syringe IVF 10 ml Q12HR JOSAFAT Administration Temazepam 15 mg 03/14/20 21:02 03/17/20 03:17 Temazepam 15 Mg Cap PO 15 mg HS PRN Administration Insomnia Torsemide 50 mg 03/15/20 21:00 03/17/20 09:36 Torsemide 100 Mg Tab PO 50 mg BID JOSAFAT Administration Zolpidem Tartrate 10 mg 03/15/20 21:00 03/15/20 21:10 Zolpidem Tartrate 5 Mg Tab PO 10 mg HSPRN PRN Administration SLEEP - Exam General Appearance: awake alert Heart: RRR, no murmur Respiratory: CTAB Gastrointestinal: soft, non-distended, normal bowel sounds Extremities: 2+ LE edema Neurological: cranial nerve grossly intact, no focal deficits Hosp A/P (1) DM type 2 causing CKD stage 3 Code(s): E11.22 - TYPE 2 DIABETES MELLITUS W DIABETIC CHRONIC KIDNEY DISEASE; N18.30 - Status: Acute Qualifiers: Diabetes mellitus senior care insulin use: without vermin exterminator use (2) NSTEMI (non-ST elevated myocardial infarction) Code(s): I21.4 - NON-ST ELEVATION (NSTEMI) MYOCARDIAL INFARCTION Status: Acute (3) Hypertensive crisis Code(s): I16.9 - HYPERTENSIVE CRISIS, UNSPECIFIED Status: Acute (4) Hypertensive encephalopathy Code(s): I67.4 - HYPERTENSIVE ENCEPHALOPATHY Status: Acute (5) CAD (coronary artery disease) Code(s): I25.10 - ATHSCL HEART DISEASE OF [place] CORONARY ARTERY W/O ANG PCTRS Status: Chronic Qualifiers: Coronary Disease-Associated Artery/Lesion type: [place] artery [place] vs. transplanted heart: [place] heart Associated angina: without angina Qualified Code(s): I25.10 - Atherosclerotic heart disease of [place] coronary artery wit hout angina pectoris (6) Fall Code(s): W19.XXXA - UNSPECIFIED FALL, INITIAL ENCOUNTER Status: Acute (7) Cardiomyopathy Code(s): I42.9 - CARDIOMYOPATHY, UNSPECIFIED Status: Acute - Plan cont asa, statin, b-gilmar, nifedipine will order CT brain, no contrast discuss with cardiology
--- NOTE | 2020-03-17 14:39 | CT ---
CT HEAD WITHOUT CONTRAST: INDICATION: Mental status change. COMPARISON: Comparison is made to the head CT of 03/12/2020. FINDINGS: Significant interval change has occurred since 03/12/2020 exam. There is now abnormal lucency seen in the posterior right temporal lobe and right occipital lobe. There is gyral density within this area of lucency and involving the medial temporal cortex. Findings are most consistent with a subacute r ight ENSEMBLE MEMBER infarct. The gyral density within this area of infarct is increased suggesting possible hem orrhagic transformation with petechial hemorrhage within the gyri. There is no hematoma or acute par enchymal hemorrhage. Ventricles remain normal size. IMPRESSION: New findings in the right posterior temporal and occipital lobes since the recent exam. Findings are most consistent with a subacute right posterior cerebral artery distribution infarct with possible h emorrhagic transformation within the gyri. Findings were discussed with Dr. Dunn. The patient's renal status prohibits IV contrast. He canno t have an MRI due to pacemaker device. Close followup noncontrast CT is recommended to assess contin ued evolution of this apparent infarct. POS: CURT
[2020-03-17] MEDS ORDERED: Nystatin Powder 15 GM BOT TOP PRN (17:03)
--- NOTE | 2020-03-17 17:37 | PDOC.EVN ---
Event Note - Event Note Event Note: CT brain pos sub-acute CVA. move to stroke unit
[2020-03-17] MEDS: Zolpidem Tartrate 5 MG TAB PO PRN (21:42)
[2020-03-17] MEDS: Potassium Chloride 10 MEQ TAB PO SCH (21:42)
[2020-03-17] MEDS: Atorvastatin Calcium 10 MG TAB PO SCH (21:42)
[2020-03-18 05:02] LABS: #Eosinphils 0.2 thou/uL (0.0-0.7); #Lymphocytes 0.9 thou/uL (1.20-3.40); #Neutrophils 9.1 thou/uL (1.40-6.50); %Basophils 0.4 % (0.0-1.0); %Eosinophils 2.1 % (0.0-10.0); %Monocytes 9.1 % (0.0-10.0); %Neutrophils 80.3 % (42.0-75.0); Hemoglobin 14.7 g/dL (14.0-18.0); Mean Corpuscular HGB CONC 31.6 g/dL (32.0-36.0); Mean Corpuscular Hemoglobin 28.4 pg (27.0-31.0); Mean Corpuscular Volume 89.6 fL (78.0-98.0); Mean Platelet Volume 7.5 fL (7.4-10.4); Platelet Count 247 thou/uL (130-400); RBC Distribution Width 14.9 % (11.5-14.5); Red Blood Cell (RBC) Count 5.19 mill/uL (4.70-6.10); White Blood Cell (WBC) Count 11.4 thou/uL (4.8-10.8)
[2020-03-18 05:26] LABS: Anion Gap 16 mmol/L (10-20); BUN (Urea Nitrogen) 50 mg/dL (8.4-25.7); Calc. Creatinine Clearance 65 mL/min (70-130); Calcium 9.3 mg/dL (7.8-10.44); Carbon Dioxide 33 mmol/L (23-31); Chloride 92 mmol/L (98-107); Estimated GFR-MDRD 36; Glucose 134 mg/dL (83-110); Potassium 3.2 mmol/L (3.5-5.1); Sodium 138 mmol/L (136-145)
[2020-03-18] MEDS: Levothyroxine Sodium 125 MCG TAB PO SCH (07:53)
--- NOTE | 2020-03-18 07:58 | PDOC.HOSPP ---
- Subjective Encounter Date: 03/18/20 Encounter Time: 07:54 Subjective: unsteadt, poor understanding of situation - Objective Vital Signs & Weight: Vital Signs (12 hours) Temp Pulse Resp BP BP Pulse Ox 03/18/20 07:34 98.1 F 65 18 142/74 H 94 L 03/18/20 04:13 98.1 F 69 18 151/74 H 92 L 03/18/20 00:15 97.9 F 60 12 131/72 93 L 03/17/20 21:42 60 130/65 03/17/20 20:09 97 03/17/20 19:58 97.8 F 63 15 142/71 H 97 Weight Weight 275 lb 2.19 oz Most Recent Monitor Data Heart Rate from ECG 65 NIBP 162/95 NIBP BP-Mean 117 Respiration from ECG 19 SpO2 97 I&O: 03/17/20 03/18/20 03/19/20 06:59 06:59 06:59 Intake Total 2410 Output Total 3150 Balance -740 Result Diagrams: 03/18/20 04:50 03/18/20 04:50 Additional Labs: Accuchecks 03/18/20 03/17/20 03/17/20 05:50 21:47 16:35 POC Glucose 137 H 128 H 152 H 03/17/20 12:01 POC Glucose 146 H Radiology Reviewed by me: Yes (CT brain, Right post infaarct) Hospitalist ROS - Medication Medications: Active Medications Generic Name Dose Route Start Last Admin Trade Name Freq PRN Reason Stop Dose Admin Acetaminophen 650 mg 03/14/20 14:53 03/17/20 03:17 Acetaminophen 325 Mg Tab PO 650 mg Q4H PRN Administration Headache/Fever/Mild Pain (1-3) Aspirin 81 mg 03/16/20 09:00 03/17/20 09:33 Aspirin 81 Mg Enteric Coated Tablet PO 81 mg DAILY JOSAFAT Administration Atorvastatin Calcium 10 mg 03/15/20 21:00 03/17/20 21:42 Atorvastatin Calcium 10 Mg Tab PO 10 mg HS JOSAFAT Administration Carvedilol 25 mg 03/15/20 09:00 03/17/20 21:42 Carvedilol 25 Mg Tab PO 25 mg BID JOSAFAT Administration Famotidine 20 mg 03/14/20 21:00 03/17/20 21:43 Famotidine/Pf 20 Mg/2ml Vial SLOW IVP 20 mg Q12HR JOSAFAT Administration Hydralazine HCl 25 mg 03/15/20 09:29 03/16/20 15:26 Hydralazine 25 Mg Tab PO 25 mg TID PRN Administration SBP Greater Than 170 Indomethacin 75 mg 03/15/20 09:00 03/17/20 09:38 Indomethacin 75 Mg Sr Capsule PO 75 mg DAILY JOSAFAT Administration Insulin Human Lispro 0 units 03/14/20 14:54 03/17/20 17:19 Humalog 300 Units/3 Ml Vial SC 2 unit .MODERATE SLIDING SC PRN Administration Moderate Correctional Scale Isosorbide Mononitrate 30 mg 03/17/20 09:00 03/17/20 09:33 Isosorbide Mononitrate Er 30 Mg Tab PO 30 mg DAILY JOSAFAT Administration Levothyroxine Sodium 125 mcg 03/15/20 06:00 03/18/20 07:53 Levothyroxine Sodium 125 Mcg Tab PO 125 mcg 0600 JOSAFAT Administration Metolazone 5 mg 03/16/20 09:00 03/17/20 09:33 Metolazone 5 Mg Tab PO 5 mg DAILY JOSAFAT Administration Nifedipine 30 mg 03/16/20 21:00 03/17/20 21:42 Nifedipine Xl 30 Mg Tab PO 30 mg BID JOSAFAT Administration Nystatin 0 gm 03/17/20 17:03 03/17/20 18:22 Nystatin Powder 15 Gm Bot TOP 1 applic TIDPRN PRN Administration SKIN IRRITATION Paroxetine HCl 20 mg 03/15/20 09:00 03/17/20 09:34 Paroxetine 20 Mg Tab PO 20 mg DAILY JOSAFAT Administration Potassium Chloride 20 meq 03/16/20 09:00 03/17/20 09:34 Potassium Chloride 20 Meq Tab PO 20 meq DAILY JOSAFAT Administration Potassium Chloride 10 meq 03/15/20 21:00 03/17/20 21:42 Potassium Chloride 10 Meq Tab PO 10 meq HS JOSAFAT Administration Sodium Chloride 10 ml 03/15/20 09:00 03/17/20 21:43 Flush - Normal Saline 10 Ml Syringe IVF 10 ml Q12HR JOSAFAT Administration Temazepam 15 mg 03/14/20 21:02 03/17/20 03:17 Temazepam 15 Mg Cap PO 15 mg HS PRN Administration Insomnia Torsemide 50 mg 03/15/20 21:00 03/17/20 21:52 Torsemide 100 Mg Tab PO 50 mg BID JOSAFAT Administration Zolpidem Tartrate 10 mg 03/15/20 21:00 03/17/20 21:42 Zolpidem Tartrate 5 Mg Tab PO 10 mg HSPRN PRN Administration SLEEP - Exam General Appearance: awake alert Neck: no JVD Heart: RRR, no murmur Respiratory: CTAB Gastrointestinal: soft, normal bowel sounds Extremities: 1+ LE edema Neurological: vision deficit Neurological - other findings: poor FNF bilat, strenght grossly symetric. L hemianopsia Hosp A/P (1) CVA (cerebral vascular accident) Code(s): I63.9 - CEREBRAL INFARCTION, UNSPECIFIED Status: Acute Qualifiers: CVA mechanism: stenosis Precerebral and cerebral artery: posterior cerebral artery Laterality of affected vessel: right Qualified Code(s): I63.531 - Cerebral infarction due to unspecified occlusion or stenosis of right posterior cerebral artery (2) DM type 2 causing CKD stage 3 Code(s): E11.22 - TYPE 2 DIABETES MELLITUS W DIABETIC CHRONIC KIDNEY DISEASE; N18.30 - CHRONIC KIDNEY DISEASE, STAGE 3 UNSPECIFIED Status: Acute Qualifiers: Diabetes mellitus terminal block assembler insulin use: without terminal block assembler use (3) NSTEMI (non-ST elevated myocardial infarction) Code(s): I21.4 - NON-ST ELEVATION (NSTEMI) MYOCARDIAL INFARCTION Status: Acute (4) Hypertensive crisis Code(s): I16.9 - HYPERTENSIVE CRISIS, UNSPECIFIED Status: Acute (5) Hypertensive encephalopathy Code(s): I67.4 - HYPERTENSIVE ENCEPHALOPATHY Status: Acute (6) CAD (coronary artery disease) Code(s): I25.10 - ATHSCL HEART DISEASE OF [place] CORONARY ARTERY W/O ANG PCTRS Status: Chronic Qualifiers: Coronary Disease-Associated Artery/Lesion type: [place] artery [place] vs. transplanted heart: [place] heart Associated angina: without angina Qualified Code(s): I25.10 - Atherosclerotic heart disease of [place] coronary artery without angina pectoris (7) Fall Code(s): W19.XXXA - UNSPECIFIED FALL, INITIAL ENCOUNTER Status: Acute (8) Cardiomyopathy Code(s): I42.9 - CARDIOMYOPATHY, UNSPECIFIED Status: Acute Qualifiers: Cardiomyopathy type: unspecified Qualified Code(s): I42.9 - Cardiomyopathy, unspecified - Plan cont asa, statin, b-gilmar, nifedipine CT brain reveals R post infarct, poss hemorrhagic conversion cont low dose ASA, rpt CT tomorrow cont POR, rehab consult discuss with cardiology
[2020-03-18] MEDS: Metolazone 5 MG TAB PO SCH (11:08)
[2020-03-18] MEDS: NIFEdipine XL 30 MG TAB PO SCH ×2 (11:08→21:08)
[2020-03-18] MEDS: Indomethacin 75 mg SR Capsule PO SCH (11:10)
[2020-03-18] MEDS: Aspirin 81 mg Enteric Coated Tablet PO SCH (11:11)
[2020-03-18] MEDS: Famotidine/PF 20 mg/2ml Vial SLOW IVP SCH ×2 (11:11→21:09)
[2020-03-18] MEDS: Potassium Chloride 20 MEQ TAB PO SCH (11:11)
[2020-03-18] MEDS: Carvedilol 25 MG TAB PO SCH ×2 (11:11→21:08)
[2020-03-18] MEDS: PARoxetine 20 MG TAB PO SCH (11:11)
[2020-03-18] MEDS: Torsemide 100 MG TAB PO SCH ×2 (11:12→21:12)
[2020-03-18] MEDS: HumaLOG 300 UNITS/3 ML VIAL SC PRN ×2 (11:12→17:48)
--- NOTE | 2020-03-18 11:36 | PQF ---
CLINICAL DOCUMENTATION CLARIFICATION FORM: Dear Dr. JESSICA SCHMITZ Date: 03-18-20 Please exercise your independent, professional judgment in responding to the clarification form. Clinical indicators are provided on the bottom of this form for your review. Diagnosis: CVA Present on Admission (POA): [ x] Yes [ ] No [ ] Unable to determine For continuity of documentation, please document condition throughout progress notes and discharge summary. Thank You. To be completed by CDI/Coding staff for physician review: CLINICAL INDICATORS - SIGNS / SYMPTOMS / LABS/ RESULTS AND LOCATION IN MR: H&P 03-14-20: HTN URGENCY, POSSIBLE EVEN HTN CRISIS, NSTEMI MOST LIKELY TYPE 2, POSSIBLE INFILTRATE, ATAXIA AND CONFUSION EVENT NOTE 03-17-20: CT BRAIN POSS SUBACUTE CVA, MOVE TO STROKE UNIT PN DR. SCHMITZ 03-18-20: ACUTE CVA, DM TYPE 2 CAUSING CKD 3, ACUTE NSTEMI, HTN CRISIS, CAD, HTN ENCEPHALOPATHY, CARDIOMYOPATHY RISK FACTORS / RESULTS AND LOCATION IN MR: H&P 03-14-20: DM, HTN, OBESITY, HYPOTHYROIDISM, CAD, PREVIOUS [place], FORMER SMOKER TREATMENTS / RESULTS AND LOCATION IN MR: EVENT NOTE 03-17-20: CT BRAIN POSS SUBACUTE CVA, MOVE TO STROKE UNIT CDS Signature: Magui Weiner Phone #: [phone] Date: 03-18-20 This is a permanent part of the Medical Record [facility]
[2020-03-18] MEDS: Zolpidem Tartrate 5 MG TAB PO PRN (21:07)
[2020-03-18] MEDS: Atorvastatin Calcium 10 MG TAB PO SCH (21:08)
[2020-03-18] MEDS: Potassium Chloride 10 MEQ TAB PO SCH (21:08)
[2020-03-19 04:27] LABS: #Basophils 0.1 thou/uL (0.0-0.2); #Eosinphils 0.2 thou/uL (0.0-0.7); #Monocytes 1.2 thou/uL (0.11-0.59); #Neutrophils 8.6 thou/uL (1.40-6.50); %Basophils 0.6 % (0.0-1.0); %Eosinophils 1.9 % (0.0-10.0); %Lymphocytes 8.9 % (21.0-51.0); %Monocytes 10.9 % (0.0-10.0); %Neutrophils 77.7 % (42.0-75.0); Hemoglobin 14.7 g/dL (14.0-18.0); Mean Corpuscular HGB CONC 32.4 g/dL (32.0-36.0); Mean Corpuscular Hemoglobin 29.1 pg (27.0-31.0); Mean Corpuscular Volume 89.7 fL (78.0-98.0); Mean Platelet Volume 7.6 fL (7.4-10.4); Platelet Count 250 thou/uL (130-400); RBC Distribution Width 15.1 % (11.5-14.5); Red Blood Cell (RBC) Count 5.05 mill/uL (4.70-6.10); White Blood Cell (WBC) Count 11.1 thou/uL (4.8-10.8)
[2020-03-19 05:00] VITALS: BMI 41.5
[2020-03-19] MEDS: Levothyroxine Sodium 125 MCG TAB PO SCH (05:01)
[2020-03-19 05:34] LABS: Anion Gap 17 mmol/L (10-20); BUN (Urea Nitrogen) 58 mg/dL (8.4-25.7); Calc. Creatinine Clearance 52 mL/min (70-130); Calcium 9.1 mg/dL (7.8-10.44); Carbon Dioxide 34 mmol/L (23-31); Chloride 89 mmol/L (98-107); Estimated GFR-MDRD 29; Glucose 175 mg/dL (83-110); Potassium 3.1 mmol/L (3.5-5.1); Sodium 137 mmol/L (136-145)
--- NOTE | 2020-03-19 07:16 | PDOC.HOSPP ---
- Subjective Encounter Date: 03/19/20 Encounter Time: 07:14 Subjective: awake, alert - Objective Vital Signs & Weight: Vital Signs (12 hours) Temp Pulse Resp BP Pulse Ox 03/19/20 04:00 97.5 F L 62 18 127/60 95 03/19/20 00:00 98.5 F 61 20 123/73 93 L 03/18/20 21:08 60 03/18/20 20:00 98.3 F 60 16 138/79 97 Weight Weight 265 lb 6.4 oz Most Recent Monitor Data Heart Rate from ECG 65 NIBP 162/95 NIBP BP-Mean 117 Respiration from ECG 19 SpO2 97 I&O: 03/18/20 03/19/20 03/20/20 06:59 06:59 06:59 Intake Total 800 700 Output Total 2575 Balance -1775 700 Result Diagrams: 03/19/20 04:12 03/19/20 04:12 Additional Labs: Accuchecks 03/19/20 03/18/20 03/18/20 05:40 21:10 16:59 POC Glucose 148 H 162 H 189 H 03/18/20 10:50 POC Glucose 154 H Hospitalist ROS - Medication Medications: Active Medications Generic Name Dose Route Start Last Admin Trade Name Freq PRN Reason Stop Dose Admin Acetaminophen 650 mg 03/14/20 14:53 03/17/20 03:17 Acetaminophen 325 Mg Tab PO 650 mg Q4H PRN Administration Headache/Fever/Mild Pain (1-3) Aspirin 81 mg 03/16/20 09:00 03/18/20 11:11 Aspirin 81 Mg Enteric Coated Tablet PO 81 mg DAILY JOSAFAT Administration Atorvastatin Calcium 10 mg 03/15/20 21:00 03/18/20 21:08 Atorvastatin Calcium 10 Mg Tab PO 10 mg HS JOSAFAT Administration Carvedilol 25 mg 03/15/20 09:00 03/18/20 21:08 Carvedilol 25 Mg Tab PO 25 mg BID JOSAFAT Administration Famotidine 20 mg 03/14/20 21:00 03/18/20 21:09 Famotidine/Pf 20 Mg/2ml Vial SLOW IVP 20 mg Q12HR JOSAFAT Administration Hydralazine HCl 25 mg 03/15/20 09:29 03/16/20 15:26 Hydralazine 25 Mg Tab PO 25 mg TID PRN Administration SBP Greater Than 170 Indomethacin 75 mg 03/15/20 09:00 03/18/20 11:10 Indomethacin 75 Mg Sr Capsule PO 75 mg DAILY JOSAFAT Administration Insulin Human Lispro 0 units 03/14/20 14:54 03/18/20 17:48 Humalog 300 Units/3 Ml Vial SC 2 unit .MODERATE SLIDING SC PRN Administration Moderate Correctional Scale Isosorbide Mononitrate 30 mg 03/17/20 09:00 03/18/20 11:09 Isosorbide Mononitrate Er 30 Mg Tab PO 30 mg DAILY JOSAFAT Administration Levothyroxine Sodium 125 mcg 03/15/20 06:00 03/19/20 05:01 Levothyroxine Sodium 125 Mcg Tab PO 125 mcg 0600 JOSAFAT Administration Metolazone 5 mg 03/16/20 09:00 03/18/20 11:08 Metolazone 5 Mg Tab PO 5 mg DAILY JOSAFAT Administration Nifedipine 30 mg 03/16/20 21:00 03/18/20 21:08 Nifedipine Xl 30 Mg Tab PO 30 mg BID JOSAFAT Administration Nystatin 0 gm 03/17/20 17:03 03/17/20 18:22 Nystatin Powder 15 Gm Bot TOP 1 applic TIDPRN PRN Administration SKIN IRRITATION Paroxetine HCl 20 mg 03/15/20 09:00 03/18/20 11:11 Paroxetine 20 Mg Tab PO 20 mg DAILY JOSAFAT Administration Potassium Chloride 20 meq 03/16/20 09:00 03/18/20 11:11 Potassium Chloride 20 Meq Tab PO 20 meq DAILY JOSAFAT Administration Potassium Chloride 10 meq 03/15/20 21:00 03/18/20 21:08 Potassium Chloride 10 Meq Tab PO 10 meq HS JOSAFAT Administration Sodium Chloride 10 ml 03/15/20 09:00 03/18/20 21:08 Flush - Normal Saline 10 Ml Syringe IVF 10 ml Q12HR JOSAFAT Administration Temazepam 15 mg 03/14/20 21:02 03/17/20 03:17 Temazepam 15 Mg Cap PO 15 mg HS PRN Administration Insomnia Torsemide 50 mg 03/15/20 21:00 03/18/20 21:12 Torsemide 100 Mg Tab PO 50 mg BID JOSAFAT Administration Zolpidem Tartrate 10 mg 03/15/20 21:00 03/18/20 21:07 Zolpidem Tartrate 5 Mg Tab PO 10 mg HSPRN PRN Administration SLEEP - Exam General Appearance: awake alert Neck: no JVD Heart: RRR, no murmur Respiratory: CTAB Gastrointestinal: soft, normal bowel sounds Extremities: 1+ LE edema Neurological: vision deficit Neurological - other findings: ataxic Hosp A/P (1) CVA (cerebral vascular accident) Code(s): I63.9 - CEREBRAL INFARCTION, UNSPECIFIED Status: Acute Qualifiers: CVA mechanism: stenosis Precerebral and cerebral artery: posterior cerebral artery Laterality of affected vessel: right Qualified Code(s): I63.531 - Cerebral infarction due to unspecified occlusion or stenosis of right posterior cerebral artery (2) DM type 2 causing CKD stage 3 Code(s): E11.22 - TYPE 2 DIABETES MELLITUS W DIABETIC CHRONIC KIDNEY DISEASE; N18.30 - CHRONIC KIDNEY DISEASE, STAGE 3 UNSPECIFIED Status: Acute Qualifiers: Diabetes mellitus supervisor intermediates insulin use: without halfway use (3) NSTEMI (non-ST elevated myocardial infarction) Code(s): I21.4 - NON-ST ELEVATION (NSTEMI) MYOCARDIAL INFARCTION Status: Acute (4) Hypertensive crisis Code(s): I16.9 - HYPERTENSIVE CRISIS, UNSPECIFIED Status: Acute (5) Hypertensive encephalopathy Code(s): I67.4 - HYPERTENSIVE ENCEPHALOPATHY Status: Acute (6) CAD (coronary artery disease) Code(s): I25.10 - ATHSCL HEART DISEASE OF [place] CORONARY ARTERY W/O ANG PCTRS Status: Chronic Qualifiers: Coronary Disease-Associated Artery/Lesion type: [place] artery [place] vs. transplanted heart: [place] heart Associated angina: without angina Qualified Code(s): I25.10 - Atherosclerotic heart disease of [place] coronary artery without angina pectoris (7) Fall Code(s): W19.XXXA - UNSPECIFIED FALL, INITIAL ENCOUNTER Status: Acute (8) Cardiomyopathy Code(s): I42.9 - CARDIOMYOPATHY, UNSPECIFIED Status: Acute Qualifiers: Cardiomyopathy type: unspecified Qualified Code(s): I42.9 - Cardiomyopathy, unspecified - Plan cont asa, statin, b-gilmar, nifedipine rpt CT brain R post infarct, no significant change ASA 325 daily cont Pt, rehab consult
[2020-03-19] MEDS: Metolazone 5 MG TAB PO SCH (09:24)
[2020-03-19] MEDS: PARoxetine 20 MG TAB PO SCH (09:25)
[2020-03-19] MEDS: Potassium Chloride 20 MEQ TAB PO SCH (09:25)
[2020-03-19] MEDS: Famotidine/PF 20 mg/2ml Vial SLOW IVP SCH (09:25)
[2020-03-19] MEDS: Indomethacin 75 mg SR Capsule PO SCH (09:25)
[2020-03-19] MEDS: Carvedilol 25 MG TAB PO SCH ×2 (09:25→20:11)
[2020-03-19] MEDS: Aspirin 81 mg Enteric Coated Tablet PO SCH (09:25)
[2020-03-19] MEDS: NIFEdipine XL 30 MG TAB PO SCH ×2 (09:25→20:10)
[2020-03-19] MEDS: Torsemide 100 MG TAB PO SCH (09:26)
[2020-03-19] MEDS: HumaLOG 300 UNITS/3 ML VIAL SC PRN ×2 (11:09→17:29)
--- NOTE | 2020-03-19 11:22 | CT ---
CT BRAIN NONCONTRAST: DATE: 03/19/2020 HISTORY: 70-year-old male follow-up CVA. COMPARISON: 03/17/2020 FINDINGS: Again noted is the large, elongated 8.5 x 3 cm lesion beginning in the anterior inferior right tempor al lobe, extending through the medial posterior right temporal lobe, and reaching the right occipital lobe. The lesion consists of low attenuation consistent with edema, surrounding large, carlos gated gyriform material of intermediate to high attenuation, which may represent petechial hemorrhage involving gyri. The trigone, temporal horn, and occipital horn, of the right lateral ventricle, are effaced. The rest of the ventricles are normal in size and configuration. No significant mass effect, midline shift, or extra-axial fluid collection. Calvarium is intact. Smal l amounts of metallic hardware fixating old left orbital roof and lateral orbital rim fracture. There is mesh or other surgical material in the left inferior extraconal orbit, directly superior to a significantly depressed left orbital floor. The paranasal sinuses are clear. No interval change overall.. IMPRESSION: 1) no interval change. 2) large right temporo-occipital lesion, consistent with a large acute or subacute infarction in the right posterior cerebral artery territory, with gyriform petechial hemorrhage. 3) no interval change since 2 days ago. 4) postsurgical changes treating old blowout fracture of left orbital floor and left lateral orbital wall and rim.
[2020-03-19] MEDS: Potassium Chloride 10 MEQ TAB PO SCH (20:10)
[2020-03-19] MEDS: Atorvastatin Calcium 10 MG TAB PO SCH (20:11)
[2020-03-20 06:32] LABS: #Eosinphils 0.4 thou/uL (0.0-0.7); #Lymphocytes 1.1 thou/uL (1.20-3.40); #Monocytes 0.9 thou/uL (0.11-0.59); #Neutrophils 7.5 thou/uL (1.40-6.50); %Basophils 0.5 % (0.0-1.0); %Eosinophils 3.9 % (0.0-10.0); %Lymphocytes 11.2 % (21.0-51.0); %Monocytes 8.8 % (0.0-10.0); %Neutrophils 75.7 % (42.0-75.0); Hemoglobin 14.5 g/dL (14.0-18.0); Mean Corpuscular HGB CONC 31.7 g/dL (32.0-36.0); Mean Corpuscular Hemoglobin 28.9 pg (27.0-31.0); Mean Corpuscular Volume 91.2 fL (78.0-98.0); Mean Platelet Volume 7.6 fL (7.4-10.4); Platelet Count 238 thou/uL (130-400); RBC Distribution Width 14.7 % (11.5-14.5); Red Blood Cell (RBC) Count 5.03 mill/uL (4.70-6.10); White Blood Cell (WBC) Count 9.9 thou/uL (4.8-10.8)
[2020-03-20] MEDS: Levothyroxine Sodium 125 MCG TAB PO SCH (06:44)
[2020-03-20] MEDS: Metolazone 5 MG TAB PO SCH (08:22)
[2020-03-20] MEDS: PARoxetine 20 MG TAB PO SCH (08:22)
[2020-03-20] MEDS: Aspirin 81 mg Enteric Coated Tablet PO SCH (08:23)
[2020-03-20] MEDS: Potassium Chloride 20 MEQ TAB PO SCH (08:23)
[2020-03-20] MEDS: NIFEdipine XL 30 MG TAB PO SCH (08:23)
[2020-03-20] MEDS: Carvedilol 25 MG TAB PO SCH (08:24)
[2020-03-20] MEDS ORDERED: Famotidine/PF 20 mg/2ml Vial SLOW IVP SCH (09:00)
[2020-03-20] MEDS ORDERED: Torsemide 100 MG TAB PO SCH (09:00)
[2020-03-20 09:13] LABS: Anion Gap 15 mmol/L (10-20); BUN (Urea Nitrogen) 67 mg/dL (8.4-25.7); Calc. Creatinine Clearance 46 mL/min (70-130); Calcium 9.1 mg/dL (7.8-10.44); Carbon Dioxide 36 mmol/L (23-31); Chloride 88 mmol/L (98-107); Estimated GFR-MDRD 26; Glucose 104 mg/dL (83-110); Potassium 3.1 mmol/L (3.5-5.1); Sodium 136 mmol/L (136-145)
--- NOTE | 2020-03-20 09:21 | DIS ---
DATE OF ADMISSION: 03/14/2020 DATE OF DISCHARGE: 03/20/2020 DISPOSITION: Discharged to [facility]. PRIMARY CARE PROVIDER: Listed as SHUN Neal. FINAL DIAGNOSES: Hypertensive crisis, acute thrombotic cerebrovascular accident, coronary artery disease, diabetes mellitus type 2 with chronic kidney disease stage 3, hypertension, cardiomyopathy, and demand ischemia. DISCHARGE MEDICATIONS: 1. Atorvastatin 10 mg a day. 2. Imdur 30 mg a day. 3. Nifedipine 30 mg b.i.d. 4. Torsemide 50 mg a day. 5. Apresoline 25 mg three times a day. 6. Coreg 25 mg a day. 7. Albuterol 1 puff q.4 hours p.r.n. 8. Synthroid 125 mcg a day. 9. Zaroxolyn 5 mg a day. 10. Paxil 20 mg a day. 11. Metformin 500 mg a day. 12. Potassium chloride 20 mEq a day. 13. Zolpidem 5 mg at bedtime p.r.n. 14. Aspirin 325 mg a day. ALLERGIES: SEROQUEL AND TRAZODONE. CODE STATUS: Full. PENDING AT TIME OF DISCHARGE: Nothing. HOSPITAL COURSE: The patient was admitted to the hospital through [facility] to the Hospitalist Service with generalized weakness and feeling dizzy. He was a poor historian. history was significant for coronary artery disease, diabetes, hypertension, hypothyroidism, found to have a blood pressure of 200/94, treated with IV medicines for his hypertension, seen in consultation by Dr. Mart Yan, Cardiology; Dr. David Rios, Pulmonology/corporate travel counselor. He was placed on Cardene. They considered the elevated troponins secondary to demand ischemia. On 03/15, the patient's status, he was more alert, less confused. He was taken off the Cardene drip, started on oral blood pressure medicines. Echocardiogram revealed an EF of 30% to 35% with some diastolic dysfunction. Pertinent to note that the patient had a defibrillator. A desire for an MRI was not available due to that. I first saw the patient on 03/17. He had had a fall prior to admission. He had difficulty standing. Neurological exam was nonfocal. At that time, a CT scan of the brain was ordered, which revealed an abnormal lucency in the right posterior temporal occipital lobes suggestive of a subacute CVA of several days duration. There was some suggestion of possible hemorrhagic transformation. He was continued on the low-dose aspirin. He was moved to the stroke unit, where he continued to be evaluated by Physical Therapy. Blood pressure was controlled. His brain CT done two days later showed no interval change and specifically no hemorrhagic transformation. His aspirin has been elevated from 81 to 325 mg a day. Currently, he is alert, cooperative. He is still having trouble with physical therapy. He was evaluated and has been accepted in [facility]. He is being transferred to there for continuing care. At the time of discharge, cardiorespiratory exam is unremarkable. His neurological exam has one significant deficit. He has a left homonymous hemianopsia as a result of the CVA damage to the right posterior area. His neurological exam continues to be nonfocal otherwise except for his ataxia. CURRENT LABORATORY DATA: Sodium 137; potassium 3.1, on supplementation; chloride 95; CO2 of 32; BUN 46; creatinine 1.81. Blood sugars are in the 100-200 range. His COVID serology was negative. Job ID: [id number] [facility]
[2020-03-20 11:25] VITALS: BP 107/54; TEMP 98.6
[2020-03-20] MEDS: HumaLOG 300 UNITS/3 ML VIAL SC PRN (12:06)
== END 2020-03-20 13:10 | DRG 64 ==
LOC: IMCU/EMU 12:50 → CCU 15:29 → 2NO 03-15 14:07 → 2SE 03-17 15:46
PROVIDERS: ADMIT Internal Medicine; ATTEND Internal Medicine
DX: I63.531 Cerebral infarction due to unspecified occlusion or stenosis of right posterior cerebral artery (principal); I21.A1 Myocardial infarction type 2; I61.9 Nontraumatic intracerebral hemorrhage, unspecified; Z68.41 Body mass index [BMI] 40.0-44.9, adult; I67.4 Hypertensive encephalopathy; I50.22 Chronic systolic (congestive) heart failure; I42.9 Cardiomyopathy, unspecified; N17.9 Acute kidney failure, unspecified; I13.0 Hypertensive heart and chronic kidney disease with heart failure and stage 1 through stage 4 chronic kidney disease, or unspecified chronic kidney disease; I16.0 Hypertensive urgency; Z20.828 Contact with and (suspected) exposure to other viral communicable diseases; E03.9 Hypothyroidism, unspecified; I25.10 Atherosclerotic heart disease of native coronary artery without angina pectoris; Z96.651 Presence of right artificial knee joint; E11.22 Type 2 diabetes mellitus with diabetic chronic kidney disease; N18.30 Chronic kidney disease, stage 3 unspecified; I73.9 Peripheral vascular disease, unspecified; E66.01 Morbid (severe) obesity due to excess calories; H53.462 Homonymous bilateral field defects, left side; N28.9 Disorder of kidney and ureter, unspecified; Z95.1 Presence of aortocoronary bypass graft; Z87.891 Personal history of nicotine dependence; Z79.82 Long term (current) use of aspirin; Z79.84 Long term (current) use of oral hypoglycemic drugs; Z88.8 Allergy status to other drugs, medicaments and biological substances
CPT/HCPCS: 36415; 36416; 70450; 80048; 80061; 84484; 85025; 87635; 93306; 94760; J7050; S0028; U0003